=== PATIENT | female | born 1975 | race Caucasian/White ===

== ENCOUNTER → 2016-11-21 | Outpatient (CLI) | payer BC ==
[~2016-11-21] MED LIST: CALCIUM CARBONATE PO; PRENATAL1 TA1 PO
== END ==
LOC: MC.RAD 14:20
DX: Z12.31 Encounter for screening mammogram for malignant neoplasm of breast (principal)

== ENCOUNTER → 2016-12-04 | Outpatient (CLI) | payer BC | LOC: MC.RAD 13:43 | DX: N63 Unspecified lump in breast (principal) ==

== ENCOUNTER → 2016-12-09 | Outpatient (CLI) | payer BC | LOC: MC.RAD 07:30 | DX: N63 Unspecified lump in breast (principal) ==